=== PATIENT | male | born 1980 | race Caucasian/White ===

== ENCOUNTER 2020-09-28 16:04 | Emergency (ER) | payer OTHER ==
[~2020-09-28] VITALS: Ht 182.9 cm; Wt 72.6 kg
[2020-09-28 16:08] VITALS: BP 168/91
[2020-09-28] MEDS ORDERED: KETOROLAC TROMETH 60MG/2ML VIAL IM ONE (17:15)
== END 2020-09-28 17:51 | disposition home or self-care (01) ==
LOC: ER 16:04
DX: S16.1XXA Strain of muscle, fascia and tendon at neck level, initial encounter (principal); S00.83XA Contusion of other part of head, initial encounter; X50.1XXA Overexertion from prolonged static or awkward postures, initial encounter; Y93.89 Activity, other specified; Y92.89 Other specified places as the place of occurrence of the external cause; Y99.8 Other external cause status
CPT/HCPCS: 70450; 72125; 96372; 99285; J1885